=== PATIENT | female | born 1965 | race Caucasian/White ===

== ENCOUNTER 2017-12-08 10:59 | Outpatient (CLI) | payer OTHER ==
[~2017-12-08 10:59] MED LIST: MACROBID 100 M100 MG PO; ULTRACET PO
== END 2017-12-08 11:06 | disposition home or self-care (01) ==
LOC: RAD 10:59
DX: Z01.818 Encounter for other preprocedural examination (principal)

== ENCOUNTER 2017-12-15 08:47 | Day surgery (SDC) | payer OTHER | END 2017-12-15 16:55 | disposition home or self-care (01) | LOC: CIR.AMB 08:47 | DX: R39.14 Feeling of incomplete bladder emptying (principal) | CPT/HCPCS: 64581; C1778 ==

== ENCOUNTER 2018-06-15 08:55 | Day surgery (SDC) | payer OTHER ==
[~2018-06-15 08:55] MED LIST changes: +CLONAZEPAM0.5 MG PO; +DETROL2 MG PO; +LOSARTAN-HCTZ1 EAC1 PO; +NORVASC2.5 MG PO; +PROTONIX40 MG PO; +SIMVASTATIN20 MG PO; +SYNTHROID175 MCG PO; +WELLBUTRIN XL300 MG PO
[2018-06-15] MEDS ORDERED: ULTRACET PO (12:04)
[2018-06-15] MEDS ORDERED: LEVAQUIN500 MG PO (12:05)
== END 2018-06-15 15:02 | disposition home or self-care (01) ==
LOC: CIR.AMB 08:55
DX: N32.81 Overactive bladder (principal); N39.46 Mixed incontinence
CPT/HCPCS: 64590; 64581; C1767; C1778